=== PATIENT | male | born 1950 | race Two or more races ===

== ENCOUNTER 2017-04-27 03:06 | Emergency (ER) | payer MEDICAID ==
[~2017-04-27] VITALS: Ht 167.6 cm; Wt 53.6 kg
[~2017-04-27 03:06] MED LIST: ALBU8HFA PO; ATOR20TA66 PO; FURO20TA4 PO; GABA-530 PO; LISI-600 PO; METF500T4 PO; OMEP40CA37 PO; THI100T PO
[2017-04-27] MEDS ORDERED: lisinopril 10 MG tablet PO ONE (04:15)
[2017-04-27 04:17] LABS: BASOPHILS % (AUTO) 0.4 % (0-1); EOSINOPHILS % (AUTO) 0.6 % (0-6); HEMATOCRIT 39.1 % (42.0-52.0); HEMOGLOBIN 13.6 g/dl (14.0-17.9); LYMPHOCYTES # (AUTO) 1.2 X10'3 (1.1-4.8); LYMPHOCYTES % (AUTO) 16.4 % (21-51); MEAN CORPUSCULAR HEMOGLOBIN 30.9 PG (27.0-31.0); MEAN CORPUSCULAR HGB CONC 34.8 % (33.0-36.5); MEAN CORPUSCULAR VOLUME 88.9 FL (78-98); MEAN PLATELET VOLUME 10.2 FL (7.4-10.4); MONOCYTES # (AUTO) 0.4 X10'3 (0-0.9); MONOCYTES % (AUTO) 5.8 % (2-12); NEUTROPHILS # (AUTO) 5.7 X10'3 (1.8-7.7); NEUTROPHILS % (AUTO) 76.8 % (42-75); PLATELET COUNT 156 X10'3 (140-440); RED CELL DISTRIBUTION WIDTH 13.4 % (11.5-14.5); WHITE BLOOD COUNT 7.4 X10'3 (4.5-11.0)
[2017-04-27 04:29] LABS: PARTIAL THROMBOPLASTIN TIME 26 SECONDS (22-32); PROTHROMBIN TIME 10.3 SECONDS (9.0-12.0)
[2017-04-27 04:32] LABS: ALANINE AMINOTRANSFERASE 26 U/L (12-78); ALBUMIN 3.4 G/DL (3.4-5.0); ALBUMIN/GLOBULIN RATIO 1.1 (1.1-1.5); ALKALINE PHOSPHATASE 92 IU/L (46-116); ANION GAP 8 (8-16); ASPARTATE AMINO TRANSFERASE 15 U/L (10-37); BILIRUBIN,TOTAL 0.2 MG/DL (0.1-1.0); BLOOD UREA NITROGEN 19 MG/DL (7-18); CALCIUM 8.9 MG/DL (8.5-10.1); CHLORIDE 106 MMOL/L (99-107); GLUCOSE 118 MG/DL (70-104); POTASSIUM 3.8 MMOL/L (3.5-5.1); SODIUM 143 MMOL/L (135-145); TOTAL CARBON DIOXIDE 29.2 MMOL/L (24-32); TOTAL PROTEIN 6.4 G/DL (6.4-8.2); eGFR 75 ML/MIN
[2017-04-27] MEDS ORDERED: ondansetron/PF 4mg/2ml inj IV ONE (04:50)
[2017-04-27] MEDS ORDERED: ketorolac tromethamine 15mg/ml inj. IV ONE (04:50)
[2017-04-27] MEDS ORDERED: ONDA4TAB9 SL (04:51)
[2017-04-27 05:12] VITALS: BP 197/83
== END 2017-04-27 05:13 | disposition home or self-care (01) ==
LOC: ER 03:06
DX: R51 Headache (principal); I16.0 Hypertensive urgency; I11.0 Hypertensive heart disease with heart failure; I50.9 Heart failure, unspecified; I25.2 Old myocardial infarction; J44.9 Chronic obstructive pulmonary disease, unspecified
CPT/HCPCS: 36415; 70450; 80053; 84484; 85025; 85610; 85730; 93005; 96374; 96375; 99285; J1885; J2405

== ENCOUNTER 2017-07-10 16:01 | Emergency (ER) | payer MEDICAID ==
[~2017-07-10] VITALS: Ht 170.2 cm; Wt 52.2 kg
[~2017-07-10 16:01] MED LIST changes: -METF500T4 PO; +METF500T6 PO
[2017-07-10 17:31] LABS: CLARITY,URINE CLEAR (Clear); COLOR,URINE YELLOW (Yellow); GLUCOSE, URINE NEGATIVE (Neg); KETONES,URINE NEGATIVE (Neg); LEUKOCYTE ESTERASE ,URINE NEGATIVE (Neg); NITRITES, URINE NEGATIVE (Neg); OCCULT BLOOD,URINE NEGATIVE (Neg); PH,URINE 5.5 (4.8-8.0); PROTEIN,URINE NEGATIVE (Neg); UROBILINOGEN,URINE 0.2 E.U/dL (0.2-1.0)
[2017-07-10 17:33] LABS: UA COLLECTION TYPE VOIDED
[2017-07-10 17:42] LABS: BASOPHILS % (AUTO) 0.5 % (0-1); EOSINOPHILS # (AUTO) 0.2 X10'3 (0-0.9); EOSINOPHILS % (AUTO) 2.6 % (0-6); HEMATOCRIT 38.7 % (42.0-52.0); HEMOGLOBIN 13.4 g/dl (14.0-17.9); LYMPHOCYTES # (AUTO) 1.6 X10'3 (1.1-4.8); LYMPHOCYTES % (AUTO) 26.6 % (21-51); MEAN CORPUSCULAR HEMOGLOBIN 30.6 PG (27.0-31.0); MEAN CORPUSCULAR HGB CONC 34.5 % (33.0-36.5); MEAN CORPUSCULAR VOLUME 88.7 FL (78-98); MEAN PLATELET VOLUME 9.9 FL (7.4-10.4); MONOCYTES # (AUTO) 0.5 X10'3 (0-0.9); NEUTROPHILS # (AUTO) 3.8 X10'3 (1.8-7.7); NEUTROPHILS % (AUTO) 62.3 % (42-75); PLATELET COUNT 205 X10'3 (140-440); RED BLOOD COUNT 4.37 X10'6 (4.70-6.10); RED CELL DISTRIBUTION WIDTH 13.9 % (11.5-14.5)
[2017-07-10 17:49] LABS: PROTHROMBIN TIME 10.4 SECONDS (9.0-12.0)
[2017-07-10 17:54] LABS: ALANINE AMINOTRANSFERASE 28 U/L (12-78); ALBUMIN 3.4 G/DL (3.4-5.0); ALBUMIN/GLOBULIN RATIO 1.1 (1.1-1.5); ALKALINE PHOSPHATASE 110 IU/L (46-116); ANION GAP 8 (8-16); ASPARTATE AMINO TRANSFERASE 17 U/L (10-37); BILIRUBIN,TOTAL 0.3 MG/DL (0.1-1.0); BLOOD UREA NITROGEN 21 MG/DL (7-18); BUN/CREATININE RATIO 22.6 (5.4-32.0); CALCIUM 8.5 MG/DL (8.5-10.1); CHLORIDE 106 MMOL/L (99-107); CREATININE 0.93 MG/DL (0.60-1.10); GLUCOSE 107 MG/DL (70-104); POTASSIUM 3.9 MMOL/L (3.5-5.1); SODIUM 142 MMOL/L (135-145); TOTAL CARBON DIOXIDE 28.1 MMOL/L (24-32); TOTAL PROTEIN 6.5 G/DL (6.4-8.2); eGFR 81 ML/MIN
[2017-07-10] MEDS ORDERED: pantoprazole 40mg Tablet.DR PO STA (22:29)
[2017-07-10] MEDS ORDERED: LIDOcaine Viscous 15ml cup MM STA (22:29)
[2017-07-10] MEDS ORDERED: mag hydrox/Alum hydrox/simeth 30ml oral suspension PO ONE (22:30)
[2017-07-10 22:55] LABS: LIPASE 150 U/L (73-393)
[2017-07-10 23:01] LABS: H PYLORI ANTIBODY NEGATIVE (Neg)
[2017-07-11 00:35] VITALS: BP 173/68
[2017-07-11] MEDS ORDERED: PANT20TA2 PO (00:50)
== END 2017-07-11 01:35 | disposition home or self-care (01) ==
LOC: ER 16:02
DX: K29.00 Acute gastritis without bleeding (principal); I11.0 Hypertensive heart disease with heart failure; I50.9 Heart failure, unspecified; I25.2 Old myocardial infarction; J44.9 Chronic obstructive pulmonary disease, unspecified
CPT/HCPCS: 36415; 80053; 81003; 83690; 84484; 85025; 85610; 86677; 93005; 99285

== ENCOUNTER 2022-05-23 14:02 | Emergency (ER) | payer MEDICAID ==
[~2022-05-23 14:02] MED LIST changes: -ALBU8HFA PO; +AMLO5TAB PO; +AMYL1CAP54 PO; +ASPI-1475 PO; -ATOR20TA66 PO; -LISI-600 PO; +LISI20TA28 PO; -METF500T6 PO; +METO-395 PO; +NITR0.4T51 SL; +OMEP20CA15 PO; -OMEP40CA37 PO; -THI100T PO
[2022-05-23] MEDS ORDERED: ondansetron/PF 4mg/2ml inj IV ONE (14:05)
[2022-05-23] MEDS ORDERED: normal saline 1000ML IV soln IVB ONE (14:05)
[2022-05-23 14:27] LABS: BASOPHILS % (AUTO) 0.4 % (0-1); EOSINOPHILS # (AUTO) 0.1 X10'3 (0-0.9); EOSINOPHILS % (AUTO) 0.7 % (0-6); HEMATOCRIT 47.4 % (42.0-52.0); HEMOGLOBIN 16.1 g/dl (14.0-17.9); LYMPHOCYTES # (AUTO) 2.4 X10'3 (1.1-4.8); LYMPHOCYTES % (AUTO) 31.2 % (21-51); MEAN CORPUSCULAR HEMOGLOBIN 31.8 PG (27.0-31.0); MEAN CORPUSCULAR HGB CONC 33.9 g/dL (33.0-36.5); MEAN CORPUSCULAR VOLUME 93.8 FL (78-98); MEAN PLATELET VOLUME 10.2 FL (7.4-10.4); MONOCYTES # (AUTO) 0.5 X10'3 (0-0.9); MONOCYTES % (AUTO) 6.2 % (2-12); NEUTROPHILS # (AUTO) 4.8 X10'3 (1.8-7.7); NEUTROPHILS % (AUTO) 61.5 % (42-75); PLATELET COUNT 158 X10'3 (140-440); RED BLOOD COUNT 5.06 X10'6 (4.70-6.10); RED CELL DISTRIBUTION WIDTH 13.3 % (11.5-14.5); WHITE BLOOD COUNT 7.8 X10'3 (4.5-11.0)
[2022-05-23 14:58] LABS: ALANINE AMINOTRANSFERASE 27 U/L (12-78); ALBUMIN 3.6 G/DL (3.4-5.0); ALBUMIN/GLOBULIN RATIO 1.1 (1.1-1.5); ALKALINE PHOSPHATASE 119 IU/L (46-116); ANION GAP 11 (8-16); ASPARTATE AMINO TRANSFERASE 16 U/L (10-37); BILIRUBIN,TOTAL 0.7 MG/DL (0.1-1.0); BLOOD UREA NITROGEN 21 MG/DL (7-18); BUN/CREATININE RATIO 24.7 (10.0-20.0); CALCIUM 9.4 MG/DL (8.5-10.1); CHLORIDE 106 MMOL/L (99-107); CREATININE 0.85 MG/DL (0.60-1.10); GLUCOSE 175 MG/DL (70-104); POTASSIUM 4.2 MMOL/L (3.5-5.1); SODIUM 140 MMOL/L (135-145); TOTAL CARBON DIOXIDE 22.7 MMOL/L (24-32); TOTAL PROTEIN 6.9 G/DL (6.4-8.2); eGFR 89 ML/MIN
--- NOTE | 2022-05-23 17:24 | NUR ---
[facility] CONTACTED FOR TRANSPORT BACK TO [facility]. ETA 30 MINS.
--- NOTE | 2022-05-23 17:43 | NUR ---
Report called to DANILO Porras at [facility] [phone]; Report given on care received in ED and discharge instructions; Chiquita verblizes understanding and acceptance of discharge status; Pt awaiting transportation back to facility; Family aware and remain at bedside at this time
--- NOTE | 2022-05-23 17:59 | NUR ---
[facility] arrives at this time for pt transportation back to Acute Care facility; IV discontinued prior to discharge; Catheter intact; Clean, dry guaze bandage applied; No complications noted to site; Discharge instructions given to family and all necessary paperwork given to Marlyn Cargo prior to discharge; VSS
[2022-05-23 18:01] VITALS: BP 154/87
== END 2022-05-23 18:27 | disposition home or self-care (01) ==
LOC: ER 14:03 → MERGE 14:03 → ER 18:27
DX: K59.00 Constipation, unspecified (principal); R10.9 Unspecified abdominal pain; Z79.82 Long term (current) use of aspirin; Z79.899 Other long term (current) drug therapy
CPT/HCPCS: 36415; 74176; 80053; 83605; 84145; 85025; 87040; 96361; 96374; 99285; J2405; J7030